=== PATIENT | female | born 1985 | race Hispanic/Latino ===

== ENCOUNTER 2017-09-22 08:54 | Inpatient (IN) | payer OTHER ==
[~2017-09-22] VITALS: Ht 160 cm; Wt 123.0 kg
[~2017-09-22 08:54] MED LIST: CYCLOBENZAPRINE5 MG PO; FLUOXETINE HCL20 MG PO; OXYCODON-ACETA1 EAC2 PO; PHENTERMINE HCL30 MG; PRENATAL-FOLIC1 EACH PO; PROAIR HFA8.5 GM INH; PROMETHAZINE HC25 M1 PO; RIZATRIPTAN5 M1 PO
--- NOTE | 2017-09-22 17:57 | NUR ---
09/22/17 1757 Letty Sutton 1730 PT ARRIVED TO PACU DROWSY ON 8L VIA MASK. PT MAINTAINING OWN AIRWAY. RESP EVEN AND UNLABORED. LIGHT BULB ASSEMBLER AT BEDSIDE. 173 MD AT BEDSIDE SPEAKING WITH PT. 1740 O2 DECREASED TO 6L VIA MASK. PT ALERT AND ORIENTED TO X3. 1745 O2 MASK REMOVED. O2 SAT 100%. 1750 1 UNIT OF BLOOD STARTED PER MD AND LIGHT BULB ASSEMBLER, VERIFIED WITH SECOND RN.
--- NOTE | 2017-09-23 08:08 | PR ---
[facility] [address] [place] [address] Signed PP Progress Notes Datetime Report Generated by CPN: 09/23/2017 08:08 SUBJECTIVE: [id number] Pain: Within normal limits Nausea/Vomiting: Denies Vital Signs: [id number] Vital Signs: Reviewed Notable Details: Oligouria Hgb/Hct = 8.6/26.3, Plts = 184 K+, Na+, Cl- all WNL, Ca++ slightly decreased Creatinine WNL, GFR = 103 EXAM: [id number] Cardiovascular: Normal Respiratory: Normal Abdomen/Uterus: Normal Lochia: Normal Extremities: Normal Exam Comments: No vaginal bleeding, no drainage from Bakri Balloon IMPRESSION/PLAN/PROCEDURES: [id number] Other Impression: PP Hemorrhage, stable now Other Plans: EBL 1700 ml Procedures: None Progress Notes: Calcium = 7.6, but Albumin = 2.2, so calculated Calcium = 9.4 (WNL). No complaints at this time. Will continue monitoring patient Signing Physician: Harriet Cuenca MD Copies: ~ *Electronically Signed* 09/23/17 0808 HARRIET CUENCA MD PATIENT NAME: MILLY WALTER PROGRESS NOTE DATE OF : 81 PHYSICIAN: HARRIET CUENCA MD RPT #: [id number] REPORT IS CONFIDENTIAL AND NOT TO BE RELEASED WITHOUT AUTHORIZATION
--- NOTE | 2017-09-23 12:36 | PR ---
[facility] [address] [place], [place] [address] Signed PP Progress Notes Datetime Report Generated by CPN: 09/23/2017 12:36 SUBJECTIVE: [id number] Pain: Within normal limits Nausea/Vomiting: Denies Vital Signs: [id number] Vital Signs: Reviewed; Within Normal Limits Notable Details: Oligouria Hgb/Hct = 8.6/26.3, Plts = 184 K+, Na+, Cl- all WNL, Ca++ slightly decreased Creatinine WNL, GFR = 103 EXAM: [id number] Cardiovascular: Not Done Respiratory: Not Done Abdomen/Uterus: Not Done Lochia: Normal Vulva/Perineum: Normal Breasts: Not Done CVA Tenderness: Not Done Extremities: Not Done Incision: Not Applicable Progress: Not Applicable Exam Comments: pack xs 2 removed Bakri balloon deflated of approx 450 cc fluid and removed from uterus IMPRESSION/PLAN/PROCEDURES: [id number] Impression: Normal progression Other Impression: PP Hemorrhage, stable now Other Plans: ambulate, shower Procedures: None Other Procedures: removal of Bakri Progress Notes: Doing well. Will increase activity and begin ambulation. Signing Physician: Reena Knight MD Copies: ~ *Electronically Signed* 09/23/17 1236 REENA KNIGHT MD PATIENT NAME: MILLY WALTER PROGRESS NOTE DATE OF : 81 PHYSICIAN: REENA KNIGHT MD RPT #: [id number] REPORT IS CONFIDENTIAL AND NOT TO BE RELEASED WITHOUT AUTHORIZATION
--- NOTE | 2017-09-23 13:21 | OR ---
[facility] [facility] [address] [place], [place] [address] Signed DATE OF OPERATION: 09/22/2017 SURGEON: Rajinder Sue MD PREOPERATIVE DIAGNOSIS: hemorrhage. POSTOPERATIVE DIAGNOSIS: hemorrhage with uterine atony. PROCEDURE: uterine curettage and Bakri balloon insertion. GRAIN ORIGINATION SPECIALIST: Dr. Clements. ANESTHESIA: General. ESTIMATED BLOOD LOSS: 700 mL. COMPLICATIONS: None. PACKING: Betadine-soaked Keerlex in vagina DRAINS: Mosley to bladder and Mosley to Bakri balloon. FINDINGS: Uterus was enlarged, soft with moderate amount of blood and clots within the uterine cavity. No placental tissue or membranes were noted within the cavity. The cervix was observed, noted to have no lacerations. There were no vaginal lacerations noted. DESCRIPTION OF PROCEDURE: The patient was brought into the operating room, placed in supine position. After adequate general anesthesia was obtained, was placed in dorsal lithotomy position. Prepped and draped in usual sterile fashion. Hand was placed in the vagina through the Electronically Signed By: RAJINDER SUE MD 09/23/17 1321 PATIENT NAME: MILLY WALTER OPERATIVE REPORT DATE OF : 81 REPORT #: [id number] PHYSICIAN: RAJINDER SUE MD PCP: KAMRAN DEUTSCH REPORT IS CONFIDENTIAL AND NOT TO BE RELEASED WITHOUT AUTHORIZATION [facility] [address] [place], [place] [address], [place] [address] Signed cervix and up into the fundus of the uterus. Several clots could be palpated. These were scraped out of the uterine cavity. The patient was given 2 g of Ancef just before the procedure and received tranexamic acid immediately after anesthesia was obtained, and the patient continued to have Pitocin IV. When no additional tissue could be palpated within the uterine cavity, a large banjo curette was carefully introduced through the cervix, which was grasped with 2 ring forceps to identify the cervix and the uterine cavity carefully scraped 360-degree fashion removing no tissue, but again a few small clots. At this point, the Bakri balloon was brought in. The balloon was fed up into the uterus and began to be filled. After about 300 mL of fluid was placed in the balloon, ultrasound showed the balloon was still in the lower segment, not up in the fundus of the uterus, so the balloon was deflated and removed. The balloon was then grasped with hand and the balloon held in the fundus with hand and balloon in the uterus and as the balloon was filled, the hand was carefully removed keeping the balloon near the fundus. The balloon was filled with 500 mL of fluid. Ultrasound was done during this procedure and noted to have good position of the balloon. After 500 mL was placed, other instruments were removed from the vagina and the balloon gently pulled for traction into the lower uterine segment. The balloon stayed in place. At this point, 2 Betadine-soaked Kerlix gauzes were tied together and packed in the vagina to help with counterpressure on the lower cervix and lower segment. With this in place, all other instruments were removed and the vagina and the drain from the Bakri balloon were carefully observed. This did seem to control the bleeding. We had no further bleeding through the vagina or through the Bakri balloon drain. After several minutes of observation, it was decided this seemed to have resolved the bleeding, so Mosley bag was attached to the Bakri balloon, Mosley catheter for the bladder left in placed and the packing left in place. The patient then went to recovery room. 2 units of packed cells had been ordered to be transfused, but were not available until in recovery room, so they were started in the recovery room. The patient tolerated the procedure well, went to recovery room in good condition. The sponge and instrument counts were correct at the end of procedure. Again Mosley bags were attached to the bladder and to the Bakri balloon. There was no specimen sent. Rajinder Sue MD MJB/MODL /[id number] Electronically Signed By: RAJINDER SUE MD 09/23/17 1321 PATIENT NAME: MILLY WALTER OPERATIVE REPORT DATE OF : 81 REPORT #: [id number] PHYSICIAN: RAJINDER SUE MD PCP: KAMRAN DEUTSCH REPORT IS CONFIDENTIAL AND NOT TO BE RELEASED WITHOUT AUTHORIZATION [address] [address] Signed cc: Reena Knight MD Copies: REENA KNIGHT MD ~ Electronically Signed By: RAJINDER SUE MD 09/23/17 1321 PATIENT NAME: MILLY WALTER OPERATIVE REPORT DATE OF : 81 REPORT #: [id number] PHYSICIAN: RAJINDER SUE MD PCP: KAMRAN DEUTSCH REPORT IS CONFIDENTIAL AND NOT TO BE RELEASED WITHOUT AUTHORIZATION
== END 2017-09-24 10:40 | disposition home or self-care (01) | DRG 768 ==
LOC: FBCO 08:54 → FBC 09:34
PROVIDERS: ADMIT General Practice
PROC: 0W3R7ZZ Control Bleeding in Genitourinary Tract, Via Natural or Artificial Opening (ICD-10-PCS; 2017-09-22)
PROC: 0UC97ZZ Extirpation of Matter from Uterus, Via Natural or Artificial Opening (ICD-10-PCS; 2017-09-22)
PROC: 0HQ9XZZ Repair Perineum Skin, External Approach (ICD-10-PCS; 2017-09-22)
PROC: 00HU33Z Insertion of Infusion Device into Spinal Canal, Percutaneous Approach (ICD-10-PCS; 2017-09-22)
PROC: 3E0R3BZ Introduction of Anesthetic Agent into Spinal Canal, Percutaneous Approach (ICD-10-PCS; 2017-09-22)
PROC: 10E0XZZ Delivery of Products of Conception, External Approach (ICD-10-PCS; principal; 2017-09-22 16:20)
DX: O99.02 Anemia complicating childbirth (principal); O72.1 Other immediate postpartum hemorrhage; Z68.42 Body mass index [BMI] 45.0-49.9, adult; D56.9 Thalassemia, unspecified; O99.214 Obesity complicating childbirth; E66.01 Morbid (severe) obesity due to excess calories; O69.81X0 Labor and delivery complicated by cord around neck, without compression, not applicable or unspecified; O77.0 Labor and delivery complicated by meconium in amniotic fluid; O70.0 First degree perineal laceration during delivery; Z87.440 Personal history of urinary (tract) infections; Z86.59 Personal history of other mental and behavioral disorders; Z3A.39 39 weeks gestation of pregnancy; Z37.0 Single live birth
CPT/HCPCS: 00952; 01960; 36415; 36430; 80053; 83735; 85025; 85027; 85384; 85610; 85730; 86850; 86900; 86901; 86920; J0330; J0690; J2590; J2795; J3010; J7030; J7040; J7120; P9016

== ENCOUNTER 2020-02-26 08:57 | Emergency (ER) | payer OTHER ==
[~2020-02-26] VITALS: Ht 160 cm; Wt 138.3 kg
[~2020-02-26 08:57] MED LIST changes: +MECLIZINE HCL25 MG PO; +ZOFRAN4 MG PO
== END 2020-02-26 11:33 | disposition home or self-care (01) ==
LOC: ED 08:57
DX: G43.909 Migraine, unspecified, not intractable, without status migrainosus (principal); Z79.899 Other long term (current) drug therapy
CPT/HCPCS: 96361; 96374; 96375; 99283-25; J0780; J1100; J1200; J7030

== ENCOUNTER 2020-04-04 12:29 | Emergency (ER) | payer OTHER ==
[~2020-04-04] VITALS: Ht 160 cm; Wt 138.8 kg
[2020-04-04] MEDS ORDERED: CYCLOBENZAPRINE10 MG PO (13:38)
[2020-04-04] MEDS ORDERED: LIDODERM1 EACH TOP (13:38)
== END 2020-04-04 13:46 | disposition home or self-care (01) ==
LOC: ED 12:29
DX: M54.5 Low back pain (principal)
CPT/HCPCS: 99283; A9270